=== PATIENT | male | born 1990 | race Caucasian/White ===

== ENCOUNTER 2021-12-14 15:50 | Inpatient (IN) | payer BC ==
[2021-12-14] VITALS (297 sets, daily range): BP systolic 131–146; BP diastolic 86–94; PULSE 87–92; TEMP 96.3–98.4; O2SAT 92–100
[~2021-12-14] VITALS: Ht 175.3 cm; Wt 61.3 kg
[2021-12-14 16:30] LABS: HEMOGLOBIN 17.8 g/dl (13.5-18.0); MEAN CELL VOLUME 93 fl (80.0-100.0); MEAN CORPUSCULAR HEMOGLOBIN 31 pg (27-31); MEAN CORPUSCULAR HGB CONC 33 g/dl (33.0-37.0); MEAN PLATELET VOLUME 9.8 fl (7.4-10.4); PLATELET COUNT 359 K/mm3 (130-400); RED BLOOD COUNT 5.77 M/mm3 (4.20-5.60); REDCELL DISTRIBUTION WIDTH-CV 11.8 % (11.5-14.5)
[2021-12-14 16:42] LABS: HEMATOCRIT 53.4 % (42.0-52.0)
[2021-12-14 16:47] LABS: ALANINE AMINOTRANSFERASE 31 U/L (0-55); ALBUMIN 4.9 gm/dL (3.5-5.0); ALKALINE PHOSPHATASE 152 U/L (40-150); AST,SGOT 22 U/L (5-34); BILIRUBIN,TOTAL 0.2 mg/dL (0.2-1.2); BLOOD UREA NITROGEN 14 mg/dL (9-21); CALCIUM 9.2 mg/dL (8.4-10.2); CHLORIDE 99 mmol/L (98-107); CREATININE, serum 1.47 mg/dL (0.72-1.25); LIPASE 21 U/L (8-78); POTASSIUM 4.5 mmol/L (3.5-4.5); SODIUM 127 mmol/L (136-145); TOTAL PROTEIN 9.2 gm/dL (6.2-8.1)
[2021-12-14 16:53] LABS: CARBON DIOXIDE < 5 mmol/L (22-29); GLUCOSE 492 mg/dL (70-99)
[2021-12-14 17:34] LABS: ACETONE,SERUM SMALL
[2021-12-14 17:37] LABS: BAND 19 % (0-10); BASOPHIL 1 % (0-2); LYMPHOCYTE 15 % (20.0-51.0); METAMYELOCYTE 1 % (0-0); MYELOCYTE 2 % (0-0); NEUTROPHILS 53 % (42.0-75.2)
[2021-12-14 17:38] LABS: PLATELET ESTIMATE NORMAL (NORMAL)
[2021-12-14] MEDS ORDERED: GLUCOPHAGE500 MG/TAB PO (18:42)
[2021-12-14 18:51] LABS: COLLECTION METHOD CLEAN CATCH
[2021-12-14 18:58] LABS: MUCOUS Present (NOT PRESENT); PH 5 (5-8); SQUAMOUS EPITHELIAL 0-2 /hpf (0-10); URINE APPEARANCE Clear (CLEAR/HAZY); URINE BACTERIA None Seen /hpf (NONE SEEN); URINE BILIRUBIN Negative (NEGATIVE); URINE BLOOD 1+ (NEGATIVE); URINE COLOR Straw (YELLOW); URINE GLUCOSE 3+ (NEGATIVE); URINE KETONE 2+ (NEGATIVE); URINE LEUKOCYTE ESTERASE Negative (NEGATIVE); URINE NITRATE Negative (NEGATIVE); URINE PROTEIN(semi-quant) 2+ (NEGATIVE); URINE RBC None Seen /hpf (0-2); URINE UROBILINOGEN Negative (NEGATIVE)
[2021-12-14 21:00] LABS: BLOOD UREA NITROGEN 12 mg/dL (9-21); CALCIUM 7.8 mg/dL (8.4-10.2); CHLORIDE 109 mmol/L (98-107); CREATININE, serum 0.91 mg/dL (0.72-1.25); GLUCOSE 222 mg/dL (70-99); POTASSIUM 4.2 mmol/L (3.5-4.5); SODIUM 131 mmol/L (136-145)
[2021-12-14 21:05] LABS: CARBON DIOXIDE < 5 mmol/L (22-29)
[2021-12-14 22:56] LABS: BLOOD UREA NITROGEN 11 mg/dL (9-21); CALCIUM 7.5 mg/dL (8.4-10.2); CHLORIDE 110 mmol/L (98-107); CREATININE, serum 0.75 mg/dL (0.72-1.25); GLUCOSE 148 mg/dL (70-99); POTASSIUM 3.9 mmol/L (3.5-4.5); SODIUM 130 mmol/L (136-145)
[2021-12-14 23:05] LABS: CARBON DIOXIDE < 5 mmol/L (22-29)
[2021-12-15] VITALS (1020 sets, daily range): BP systolic 99–117; BP diastolic 69–79; PULSE 81–96; TEMP 97.7–98.6; O2SAT 91–100
[2021-12-15 00:41] LABS: CALCIUM 7.4 mg/dL (8.4-10.2); CREATININE, serum 0.75 mg/dL (0.72-1.25); POTASSIUM 3.5 mmol/L (3.5-4.5)
[2021-12-15 04:25] LABS: CALCIUM 7.4 mg/dL (8.4-10.2); CREATININE, serum 0.75 mg/dL (0.72-1.25); POTASSIUM 3.2 mmol/L (3.5-4.5)
[2021-12-15 05:57] LABS: MEAN CORPUSCULAR HGB CONC 36 g/dl (33.0-37.0); MEAN PLATELET VOLUME 9.2 fl (7.4-10.4); RED BLOOD COUNT 4.13 M/mm3 (4.20-5.60); REDCELL DISTRIBUTION WIDTH-CV 11.4 % (11.5-14.5)
[2021-12-15 06:11] LABS: CALCIUM 7.2 mg/dL (8.4-10.2); CREATININE, serum 0.73 mg/dL (0.72-1.25)
[2021-12-15 06:13] LABS: POTASSIUM 2.9 mmol/L (3.5-4.5)
[2021-12-15 06:22] LABS: HEMATOCRIT 35.5 % (42.0-52.0); MEAN CORPUSCULAR HEMOGLOBIN 31 pg (27-31)
[2021-12-15 06:27] LABS: HEMOGLOBIN 12.8 g/dl (13.5-18.0); MEAN CELL VOLUME 86 fl (80.0-100.0); PLATELET COUNT 208 K/mm3 (130-400)
[2021-12-15 07:07] LABS: BAND 3 % (0-10); LYMPHOCYTE 27 % (20.0-51.0); MYELOCYTE 1 % (0-0); NEUTROPHILS 58 % (42.0-75.2); PLATELET ESTIMATE NORMAL (NORMAL)
[2021-12-15 09:36] LABS: CALCIUM 7.3 mg/dL (8.4-10.2); CREATININE, serum 0.74 mg/dL (0.72-1.25)
[2021-12-15 09:50] LABS: POTASSIUM 2.9 mmol/L (3.5-4.5)
[2021-12-15 11:27] LABS: CALCIUM 7.6 mg/dL (8.4-10.2); CREATININE, serum 0.74 mg/dL (0.72-1.25); POTASSIUM 3.1 mmol/L (3.5-4.5)
--- NOTE | 2021-12-15 13:00 | NUR ---
Resting in bed watching TV. Reports that he is hungry but denies any other needs or concerns at this time.
[2021-12-15 15:23] LABS: CALCIUM 7.9 mg/dL (8.4-10.2); CREATININE, serum 0.68 mg/dL (0.72-1.25); POTASSIUM 3.4 mmol/L (3.5-4.5)
--- NOTE | 2021-12-15 17:00 | NUR ---
Insulin drip discontinued per hospitalist orders. Patient resting in bed; no complaints at this time.
--- NOTE | 2021-12-15 19:40 | NUR ---
INITIAL SHIFT ASSESSMENT COMPLETED. PATIENT RESTING COMFORTABLY IN BED. NO ACUTE DISTRESS. PATIENT NO LONGER ON INSULIN DRIP. POTASSIUM REPLACEMENT IN PROGRESS. WILL CONTINUE TO MONITOR.
[2021-12-15 19:46] LABS: CREATININE, serum 0.65 mg/dL (0.72-1.25); POTASSIUM 3.2 mmol/L (3.5-4.5)
[2021-12-16] VITALS (751 sets, daily range): BP systolic 104–112; BP diastolic 71–79; PULSE 71–87; TEMP 97.4–98.1; O2SAT 75–100
[2021-12-16 01:29] LABS: CREATININE, serum 0.6 mg/dL (0.72-1.25); POTASSIUM 3.6 mmol/L (3.5-4.5)
--- NOTE | 2021-12-16 05:28 | NUR ---
ASSUMED CARE OF PATIENT AT 0030 FROM KRYST[facility] TAYLOR. ASSESSMENT COMPLETED, VSS. PATIENT REQUESTING TO DISCHARGE IN THE MORNING AND REQUESTS FOR NO BLOOD DRAWS. RN EXPLAINED THE NEED TO EVALUATE LABS. PO POTASSIUM REPLACEMENT GIVEN TO PATIENT, PATIENT DID NOT COMPLETE THIS. RN EXPLAINED SEVERAL TIMES THE IMPORTANCE OF REPLACING POTASSIUM PATIENT WAS RECENTLY IN [facility]. PATIENT STATES UNDERSTANDING BUT DOES NOT COMPLETE. RN EXPLAINED THAT IV POTASSIUM MAY BE NECESSARY AND INADEQUATE LAB VALUES MAY RESULT IN A DELAY IN DISCHARGE, THIS DID NOT CHANGE THE PATIENT'S ACTIONS. NO ACUTE EVENTS OVERNIGHT. BEDSIDE REPORT TO BE GIVEN TO ONCOMING SHIFT.
[2021-12-16 05:57] LABS: HEMATOCRIT 37.5 % (42.0-52.0); HEMOGLOBIN 13.6 g/dl (13.5-18.0); MEAN CELL VOLUME 85 fl (80.0-100.0); MEAN CORPUSCULAR HEMOGLOBIN 31 pg (27-31); MEAN CORPUSCULAR HGB CONC 36 g/dl (33.0-37.0); MEAN PLATELET VOLUME 9.2 fl (7.4-10.4); PLATELET COUNT 185 K/mm3 (130-400); REDCELL DISTRIBUTION WIDTH-CV 11.7 % (11.5-14.5)
[2021-12-16 06:15] LABS: CALCIUM 8.2 mg/dL (8.4-10.2); CREATININE, serum 0.6 mg/dL (0.72-1.25); MAGNESIUM 1.6 mg/dL (1.6-2.6); POTASSIUM 3.4 mmol/L (3.5-4.5)
--- NOTE | 2021-12-16 08:50 | NUR ---
Nurse at bedside with patient. Instrucing patient to administer insulin himself. Patient has a "phobia" of needles. Stayed at bedside for approximately 25 min while patient attempted to inject himself but was unable to. This nurse administered patient's insulin. Discussed with patient the importance of being able to do this for himself upon discharge. Patient verbalizes understanding but could not bring himself to inject. Will attempt again at lunch.
--- NOTE | 2021-12-16 12:30 | NUR ---
Hospitalist notified that patient is refusing to allow this RN to infuse the IV magnesium.
--- NOTE | 2021-12-16 17:15 | NUR ---
Patient checked his blood glucose and was able to inject the appropriate dose of insulin. Patient still struggles with the fear of injection but was able to complete the task with less difficulty than the first injection.
[2021-12-17] VITALS: BP 106/76; PULSE 76; TEMP 98.1
[2021-12-17 04:00] VITALS: BP 108/69; PULSE 65; TEMP 98.1
[2021-12-17 05:52] LABS: CALCIUM 8.5 mg/dL (8.4-10.2); CREATININE, serum 0.64 mg/dL (0.72-1.25); POTASSIUM 3.7 mmol/L (3.5-4.5)
--- NOTE | 2021-12-17 06:06 | NUR ---
ASSUMED CARE OF PATIENT AFTER RECEIVING BEDSIDE REPORT. ASSESSMENT COMPLETED, VSS. PATIENT ABLE TO CHECK BLOOD SUGAR AND ADMINISTER INSULIN. PATIENT VERABLIZED UNDERSTANDING OF HOW TO DO BOTH AND THE IMPORTANCE OF BOTH. PATIENT VERBALIZED THE IMPORTANCE OF CARB CONTROL DIET. NO ACUTE OVERNIGHT EVENTS. BEDSIDE REPORT TO BE GIVEN TO ONCOMING SHIFT.
[2021-12-17 08:00] VITALS: BP 122/84; PULSE 84; TEMP 97.8
--- NOTE | 2021-12-17 10:09 | NUR ---
The patient is in droplet isolation for located within [facility]. ANALIA contacted the patient to discuss discharge plan. The patient lives in [place] with his [id number] daughter and his daughter's mother, Lisa Marley (ph#[phone]). Lisa is with their daughter while he is here. He reports independence with ADLs and does not have any DME. The patient does not have a PCP, but he was interested in SW getting him set up with one. He is open to a PCP is [place]. He receives his medications from [facility]. The patient does not have a PCP and he was not interested in completing one. The patient is not and his daughter is under the age of 18. He states that his father is . His mother is Renetta Mccurdy (ph#[phone]). Renetta is his next-of-kin and SW informed him of this. The patient verbalized understanding. The patient plans on returning home upon discharge. ANALIA contacted [facility] and secured the patient an appointment with AMALIA Smith on Friday, 12/25, at 0930. ANALIA to inform the RN of the appointment. No additional needs at this time. *Discharge plan: home*
[2021-12-17] MEDS ORDERED: NOVOLOG 100U100 U/M1 SQ (10:32)
[2021-12-17] MEDS ORDERED: LEVEMIR FLEX100 U/ML SQ (10:32)
[2021-12-17] MEDS ORDERED: AMOXICILLIN 8751 TAB PO (10:32)
[2021-12-17] MEDS ORDERED: GLUCAGON EMERGEN1 M1 SQ (10:33)
[2021-12-17] MEDS ORDERED: BD ALCOHOL1 SWA MC (10:33)
[2021-12-17] MEDS ORDERED: INSULIN PEN NE1 EAC1 MC (10:33)
[2021-12-17] MEDS ORDERED: GLUTOSE 1515 GM PO (10:33)
[2021-12-17] MEDS ORDERED: MAG-OX 400400 MG/TAB PO (10:33)
[2021-12-17] MEDS ORDERED: GLUCOSE TEST ST1 DEV MC (10:33)
[2021-12-17] MEDS ORDERED: FREESTYLE PREC1 EAC5 MC (10:33)
[2021-12-17] MEDS ORDERED: LANCETS MC (10:33)
[2021-12-17] MEDS ORDERED: CONTROL SOLUTI1 EAC1 MC (10:33)
--- NOTE | 2021-12-17 11:00 | NUR ---
PT VERBALIZES UNDERSTANDING OF ALL DISCHARGE PAPERWORK. PT HAS INSTRUCTIONS ON INSULIN ADMINSTRATION FOR HOME AND ALL PRESCRIPTIONS TO TAKE TO THE PHARMACY. PT IV IS REMOVED. PT IS IN STREET CLOTHES. PT AMBULATES WITH NO PROBLEM. PT IS WAITING IN ROOM UNTIL RIDE IS AVAILABLE.
== END 2021-12-17 14:06 | disposition home or self-care (01) | DRG 638 ==
LOC: COL.ER 15:50 → ICU 16:48
PROVIDERS: Emergency Medicine; Internal Medicine; ADMIT Internal Medicine
DX: E11.10 Type 2 diabetes mellitus with ketoacidosis without coma (principal); N17.9 Acute kidney failure, unspecified; E44.0 Moderate protein-calorie malnutrition; Z68.1 Body mass index [BMI] 19.9 or less, adult; T38.3X6A Underdosing of insulin and oral hypoglycemic [antidiabetic] drugs, initial encounter; F17.210 Nicotine dependence, cigarettes, uncomplicated; J01.90 Acute sinusitis, unspecified; S09.90XA Unspecified injury of head, initial encounter; J10.1 Influenza due to other identified influenza virus with other respiratory manifestations; E87.6 Hypokalemia; W19.XXXA Unspecified fall, initial encounter; Y93.89 Activity, other specified; Y92.9 Unspecified place or not applicable; Z91.138 Patient's unintentional underdosing of medication regimen for other reason
CPT/HCPCS: 99232-AI; 99233-AI; 99239; J1815; J3475; J3480; J7030; J7120